=== PATIENT | female | born 1990 | race Caucasian/White ===

== ENCOUNTER 2018-08-23 21:55 | Emergency (ER) | payer MEDICAID ==
[~2018-08-23] VITALS: Ht 157.5 cm; Wt 63.0 kg
[2018-08-23 22:04] VITALS: Ht 157.5 cm; Wt 63.0 kg
[2018-08-23 23:02] LABS: BASOPHIL % 0.5 % (0-2); PLATELET COUNT 312 x10^3mcL (130-400)
[2018-08-23 23:05] LABS: RED CELL DISTRIBUTION WIDTH 17.3 % (11.5-14.5)
[2018-08-23 23:18] LABS: CALCIUM 8.7 mg/dL (8.5-10.1); CARBON DIOXIDE 27.9 mmol/L (21-32); CHLORIDE SERUM 104 mmol/L (98-107); CREATININE SERUM 0.6 mg/dL (0.6-1.0); GFR1 > 60 mL/min; GLUCOSE SERUM 89 mg/dL (74-106); POTASSIUM SERUM 3.7 mmol/L (3.5-5.1); SODIUM SERUM 140 mmol/L (136-145)
[2018-08-23 23:31] LABS: ALBUMIN 3.8 g/dL (3.4-5.0); ALKALINE PHOSPHATASE 56 U/L (46-116); ALT/SGPT 24 U/L (14-59); AST/SGOT 14 U/L (15-37); BILIRUBIN TOTAL 0.24 mg/dL (0.20-1.00); T4(THYROXINE) 6.7 ug/dL (4.7-13.3); TOTAL PROTEIN, SERUM 7.5 g/dL (6.4-8.2)
[2018-08-24 00:28] VITALS: BP 115/78
== END 2018-08-24 00:33 | disposition home or self-care (01) ==
LOC: ED 21:55
PROVIDERS: Emergency Medicine
DX: E01.0 Iodine-deficiency related diffuse (endemic) goiter (principal)
CPT/HCPCS: 36415; J1885

== ENCOUNTER 2018-08-26 01:39 | Emergency (ER) | payer MEDICAID ==
[~2018-08-26] VITALS: Ht 157.5 cm; Wt 62.1 kg
[2018-08-26 01:44] VITALS: Ht 157.5 cm; Wt 62.1 kg
[2018-08-26 02:52] VITALS: BP 95/64
== END 2018-08-26 02:52 | disposition left against medical advice (07) ==
LOC: ED 01:39
DX: Z53.21 Procedure and treatment not carried out due to patient leaving prior to being seen by health care provider (principal)

== ENCOUNTER 2018-08-31 22:34 | Emergency (ER) | payer MEDICAID ==
[~2018-08-31] VITALS: Ht 157.5 cm; Wt 61.2 kg
[2018-08-31 22:52] VITALS: Ht 157.5 cm; Wt 61.2 kg
[2018-08-31 23:30] LABS: BASOPHIL % 0.2 % (0-2); PLATELET COUNT 385 x10^3mcL (130-400)
[2018-08-31 23:31] LABS: RED CELL DISTRIBUTION WIDTH 17.2 % (11.5-14.5)
[2018-08-31 23:42] LABS: ALBUMIN 4.2 g/dL (3.4-5.0); ALKALINE PHOSPHATASE 65 U/L (46-116); ALT/SGPT 14 U/L (14-59); AST/SGOT 13 U/L (15-37); BILIRUBIN TOTAL 0.4 mg/dL (0.20-1.00); CALCIUM 8.7 mg/dL (8.5-10.1); CARBON DIOXIDE 27.4 mmol/L (21-32); CHLORIDE SERUM 103 mmol/L (98-107); CREATININE SERUM 0.7 mg/dL (0.6-1.0); GFR1 > 60 mL/min; GLUCOSE SERUM 84 mg/dL (74-106); LIPASE 233 IU/L (73-393); POTASSIUM SERUM 3.7 mmol/L (3.5-5.1); SODIUM SERUM 140 mmol/L (136-145); TOTAL PROTEIN, SERUM 7.8 g/dL (6.4-8.2)
[2018-09-01 00:29] VITALS: BP 103/68
== END 2018-09-01 00:29 | disposition home or self-care (01) ==
LOC: ED 22:34
PROVIDERS: Emergency Medicine
DX: K22.4 Dyskinesia of esophagus (principal); J18.9 Pneumonia, unspecified organism; F41.9 Anxiety disorder, unspecified; Z88.0 Allergy status to penicillin; Z88.8 Allergy status to other drugs, medicaments and biological substances
CPT/HCPCS: 36415; Q0092

== ENCOUNTER 2018-09-27 23:51 | Emergency (ER) | payer MEDICAID ==
[~2018-09-27] VITALS: Ht 157.5 cm; Wt 66.2 kg
[2018-09-27 23:56] VITALS: Ht 157.5 cm; Wt 66.2 kg
[2018-09-28 00:37] VITALS: BP 126/77
== END 2018-09-28 00:37 | disposition home or self-care (01) ==
LOC: ED 23:51
DX: S93.401A Sprain of unspecified ligament of right ankle, initial encounter (principal); J45.909 Unspecified asthma, uncomplicated; Z88.0 Allergy status to penicillin; Z88.8 Allergy status to other drugs, medicaments and biological substances; X50.1XXA Overexertion from prolonged static or awkward postures, initial encounter; Y93.02 Activity, running; Y92.89 Other specified places as the place of occurrence of the external cause; Y99.8 Other external cause status

== ENCOUNTER 2018-10-11 09:20 | Emergency (ER) | payer MEDICAID ==
[~2018-10-11] VITALS: Ht 157.5 cm; Wt 65.3 kg
[2018-10-11 09:28] VITALS: Ht 157.5 cm; Wt 65.3 kg
[2018-10-11 13:09] VITALS: BP 106/70
== END 2018-10-11 13:09 | disposition home or self-care (01) ==
LOC: ED 09:20
DX: R10.13 Epigastric pain (principal); J45.909 Unspecified asthma, uncomplicated; F41.9 Anxiety disorder, unspecified; Z98.890 Other specified postprocedural states; Z88.0 Allergy status to penicillin; Z88.8 Allergy status to other drugs, medicaments and biological substances
CPT/HCPCS: J1885; Q0092

== ENCOUNTER 2018-11-11 19:45 | Emergency (ER) | payer MEDICAID ==
[~2018-11-11] VITALS: Ht 157.5 cm; Wt 64.6 kg
[2018-11-11 20:14] VITALS: Ht 157.5 cm; Wt 64.6 kg
[2018-11-11 20:46] LABS: BASOPHIL % 0.4 % (0-2); PLATELET COUNT 346 x10^3mcL (130-400)
[2018-11-11 20:51] LABS: RED CELL DISTRIBUTION WIDTH 16.7 % (11.5-14.5)
[2018-11-11 20:52] LABS: CALCIUM 9.4 mg/dL (8.5-10.1); CARBON DIOXIDE 29.2 mmol/L (21-32); CHLORIDE SERUM 105 mmol/L (98-107); CREATININE SERUM 0.8 mg/dL (0.6-1.0); GFR1 > 60 mL/min; GLUCOSE SERUM 89 mg/dL (74-106); POTASSIUM SERUM 3.6 mmol/L (3.5-5.1); SODIUM SERUM 143 mmol/L (136-145)
[2018-11-11 20:56] LABS: ALBUMIN 4.1 g/dL (3.4-5.0); ALKALINE PHOSPHATASE 61 U/L (46-116); ALT/SGPT 11 U/L (14-59); AST/SGOT 5 U/L (15-37); TOTAL PROTEIN, SERUM 7.8 g/dL (6.4-8.2)
[2018-11-12 02:39] VITALS: BP 92/56
== END 2018-11-12 02:39 | disposition home or self-care (01) ==
LOC: ED 19:45
DX: R10.13 Epigastric pain (principal); R10.10 Upper abdominal pain, unspecified; J45.909 Unspecified asthma, uncomplicated; F41.9 Anxiety disorder, unspecified; Z98.890 Other specified postprocedural states; Z88.0 Allergy status to penicillin; Z88.8 Allergy status to other drugs, medicaments and biological substances
CPT/HCPCS: 36415; J1885

== ENCOUNTER 2018-11-13 14:30 | Emergency (ER) | payer MEDICAID ==
[~2018-11-13] VITALS: Ht 157.5 cm; Wt 63.0 kg
[2018-11-13 14:56] VITALS: Ht 157.5 cm; Wt 63.0 kg
[2018-11-13 15:55] LABS: BASOPHIL % 0.3 % (0-2); PLATELET COUNT 335 x10^3mcL (130-400)
[2018-11-13 15:57] LABS: RED CELL DISTRIBUTION WIDTH 16.5 % (11.5-14.5)
[2018-11-13 16:01] LABS: CALCIUM 8.9 mg/dL (8.5-10.1); CARBON DIOXIDE 31.4 mmol/L (21-32); CHLORIDE SERUM 106 mmol/L (98-107); CREATININE SERUM 0.6 mg/dL (0.6-1.0); GFR1 > 60 mL/min; GLUCOSE SERUM 93 mg/dL (74-106); POTASSIUM SERUM 4.2 mmol/L (3.5-5.1); SODIUM SERUM 141 mmol/L (136-145)
[2018-11-13 16:07] LABS: ALKALINE PHOSPHATASE 58 U/L (46-116); ALT/SGPT 20 U/L (14-59); AMYLASE 80 U/L (25-115); AST/SGOT 10 U/L (15-37); BILIRUBIN TOTAL 0.5 mg/dL (0.20-1.00); LIPASE 172 IU/L (73-393); TOTAL PROTEIN, SERUM 7.3 g/dL (6.4-8.2)
[2018-11-13 18:02] VITALS: BP 106/56
== END 2018-11-13 18:02 | disposition home or self-care (01) ==
LOC: ED 14:30
PROVIDERS: Emergency Medicine
DX: R10.13 Epigastric pain (principal); Z98.51 Tubal ligation status; F41.9 Anxiety disorder, unspecified; Z88.0 Allergy status to penicillin; Z88.8 Allergy status to other drugs, medicaments and biological substances
CPT/HCPCS: 36415; J0780; J1885; Q0092

== ENCOUNTER 2018-12-17 12:43 | Emergency (ER) | payer MEDICAID ==
[~2018-12-17] VITALS: Ht 162.6 cm; Wt 64.0 kg
[2018-12-17 12:50] VITALS: Ht 162.6 cm; Wt 64.0 kg
[2018-12-17 16:30] VITALS: BP 102/61
== END 2018-12-17 16:30 | disposition home or self-care (01) ==
LOC: ED 12:43
DX: G43.909 Migraine, unspecified, not intractable, without status migrainosus (principal); H53.149 Visual discomfort, unspecified; J45.909 Unspecified asthma, uncomplicated; F41.9 Anxiety disorder, unspecified; Z88.0 Allergy status to penicillin; Z98.890 Other specified postprocedural states; Z98.51 Tubal ligation status; Z88.8 Allergy status to other drugs, medicaments and biological substances
CPT/HCPCS: J1885; J2765

== ENCOUNTER 2019-01-11 17:52 | Emergency (ER) | payer MEDICAID ==
[~2019-01-11] VITALS: Ht 157.5 cm; Wt 64.0 kg
[2019-01-11 17:58] VITALS: Ht 157.5 cm; Wt 64.0 kg
[2019-01-11 18:29] VITALS: BP 108/66
== END 2019-01-11 19:11 | disposition home or self-care (01) ==
LOC: ED 17:52
DX: F41.9 Anxiety disorder, unspecified (principal); J45.909 Unspecified asthma, uncomplicated; G43.911 Migraine, unspecified, intractable, with status migrainosus; Z98.51 Tubal ligation status; Z98.890 Other specified postprocedural states; Z88.0 Allergy status to penicillin; Z88.8 Allergy status to other drugs, medicaments and biological substances

== ENCOUNTER 2019-02-19 12:05 | Emergency (ER) | payer OTHER ==
[~2019-02-19] VITALS: Ht 157.5 cm; Wt 61.7 kg
[2019-02-19 12:17] VITALS: BP 101/58; Ht 157.5 cm; Wt 61.7 kg
== END 2019-02-19 13:13 | disposition home or self-care (01) ==
LOC: ED 12:05
DX: H66.91 Otitis media, unspecified, right ear (principal); J45.909 Unspecified asthma, uncomplicated; F41.9 Anxiety disorder, unspecified; G43.909 Migraine, unspecified, not intractable, without status migrainosus; Z98.51 Tubal ligation status; Z88.0 Allergy status to penicillin; Z88.8 Allergy status to other drugs, medicaments and biological substances

== ENCOUNTER 2019-04-20 19:07 | Emergency (ER) | payer OTHER ==
[~2019-04-20] VITALS: Ht 157.5 cm; Wt 61.7 kg
[2019-04-20 19:54] VITALS: Ht 157.5 cm; Wt 61.7 kg
[2019-04-20 22:49] VITALS: BP 100/71
== END 2019-04-20 22:49 | disposition home or self-care (01) ==
LOC: ED 19:07
DX: G43.909 Migraine, unspecified, not intractable, without status migrainosus (principal); J45.909 Unspecified asthma, uncomplicated; F41.9 Anxiety disorder, unspecified; Z98.890 Other specified postprocedural states; Z98.51 Tubal ligation status; Z88.0 Allergy status to penicillin; Z88.8 Allergy status to other drugs, medicaments and biological substances
CPT/HCPCS: J1885; J2765

== ENCOUNTER 2019-05-12 19:38 | Emergency (ER) | payer OTHER ==
[~2019-05-12] VITALS: Ht 157.5 cm; Wt 61.7 kg
[2019-05-12 19:48] VITALS: Ht 157.5 cm; Wt 61.7 kg
[2019-05-12 22:26] VITALS: BP 107/68
== END 2019-05-12 22:50 | disposition home or self-care (01) ==
LOC: ED 19:38
DX: S46.811A Strain of other muscles, fascia and tendons at shoulder and upper arm level, right arm, initial encounter (principal); M54.6 Pain in thoracic spine; M54.2 Cervicalgia; X50.0XXA Overexertion from strenuous movement or load, initial encounter; Y93.89 Activity, other specified; Y92.89 Other specified places as the place of occurrence of the external cause; Y99.8 Other external cause status
CPT/HCPCS: J1885

== ENCOUNTER 2019-05-16 14:49 | Emergency (ER) | payer OTHER ==
[~2019-05-16] VITALS: Ht 233.7 cm; Wt 63.2 kg
[2019-05-16 15:26] VITALS: BP 115/40; Ht 233.7 cm; Wt 63.2 kg
== END 2019-05-16 16:19 | disposition left against medical advice (07) ==
LOC: ED 14:49
DX: Z53.21 Procedure and treatment not carried out due to patient leaving prior to being seen by health care provider (principal)

== ENCOUNTER 2019-07-08 23:27 | Emergency (ER) | payer OTHER ==
[~2019-07-08] VITALS: Ht 157.5 cm; Wt 61.7 kg
[2019-07-08 23:33] VITALS: Ht 157.5 cm; Wt 61.7 kg
[2019-07-09 00:30] LABS: BASOPHIL % 0.4 % (0-2); PLATELET COUNT 275 x10^3mcL (130-400); RED CELL DISTRIBUTION WIDTH 17.7 % (11.5-14.5)
[2019-07-09 00:37] LABS: CALCIUM 8.3 mg/dL (8.5-10.1); CARBON DIOXIDE 28.3 mmol/L (21-32); CHLORIDE SERUM 106 mmol/L (98-107); CREATININE SERUM 0.6 mg/dL (0.6-1.0); GFR1 > 60 mL/min; GLUCOSE SERUM 88 mg/dL (74-106); POTASSIUM SERUM 3.3 mmol/L (3.5-5.1); SODIUM SERUM 141 mmol/L (136-145)
[2019-07-09 00:43] LABS: ALBUMIN 3.7 g/dL (3.4-5.0); ALKALINE PHOSPHATASE 53 U/L (46-116); ALT/SGPT 16 U/L (14-59); AST/SGOT 12 U/L (15-37); BILIRUBIN TOTAL 0.2 mg/dL (0.20-1.00); TOTAL PROTEIN, SERUM 7.2 g/dL (6.4-8.2)
[2019-07-09 01:26] VITALS: BP 98/69
== END 2019-07-09 01:26 | disposition home or self-care (01) ==
LOC: ED 23:27
PROVIDERS: Emergency Medicine
DX: R07.89 Other chest pain (principal); F41.9 Anxiety disorder, unspecified; G43.909 Migraine, unspecified, not intractable, without status migrainosus; Z98.890 Other specified postprocedural states; Z88.0 Allergy status to penicillin; Z88.8 Allergy status to other drugs, medicaments and biological substances
CPT/HCPCS: 36415; Q0092

== ENCOUNTER 2019-07-24 21:24 | Emergency (ER) | payer OTHER ==
[~2019-07-24] VITALS: Ht 157.5 cm; Wt 60.3 kg
[2019-07-24 21:33] VITALS: Ht 157.5 cm; Wt 60.3 kg
[2019-07-24 23:17] LABS: BASOPHIL % 0.3 % (0-2); PLATELET COUNT 302 x10^3mcL (130-400)
[2019-07-24 23:18] LABS: RED CELL DISTRIBUTION WIDTH 16.4 % (11.5-14.5)
[2019-07-24 23:31] LABS: CALCIUM 8.5 mg/dL (8.5-10.1); CARBON DIOXIDE 30.2 mmol/L (21-32); CHLORIDE SERUM 102 mmol/L (98-107); CREATININE SERUM 0.6 mg/dL (0.6-1.0); GFR1 > 60 mL/min; GLUCOSE SERUM 82 mg/dL (74-106); POTASSIUM SERUM 3.6 mmol/L (3.5-5.1); SODIUM SERUM 139 mmol/L (136-145)
[2019-07-24 23:35] LABS: ALBUMIN 3.9 g/dL (3.4-5.0); ALKALINE PHOSPHATASE 54 U/L (46-116); ALT/SGPT 18 U/L (14-59); AST/SGOT 12 U/L (15-37); BILIRUBIN TOTAL 0.3 mg/dL (0.20-1.00); MAGNESIUM 1.8 mg/dL (1.8-2.4); TOTAL PROTEIN, SERUM 7.6 g/dL (6.4-8.2)
[2019-07-25 02:16] VITALS: BP 102/66
== END 2019-07-25 02:16 | disposition home or self-care (01) ==
LOC: ED 21:24
PROVIDERS: Emergency Medicine
DX: R20.2 Paresthesia of skin (principal)
CPT/HCPCS: 36415; J1885

== ENCOUNTER 2019-12-11 10:29 | Emergency (ER) | payer OTHER ==
[~2019-12-11] VITALS: Ht 157.5 cm; Wt 61.7 kg
[2019-12-11 10:42] VITALS: BP 100/50; Ht 157.5 cm; Wt 61.7 kg
== END 2019-12-11 12:20 ==
LOC: ED 10:29
DX: S63.501A Unspecified sprain of right wrist, initial encounter (principal); J45.909 Unspecified asthma, uncomplicated; G43.909 Migraine, unspecified, not intractable, without status migrainosus; Z88.0 Allergy status to penicillin; Z88.8 Allergy status to other drugs, medicaments and biological substances; X58.XXXA Exposure to other specified factors, initial encounter; Y93.89 Activity, other specified; Y92.89 Other specified places as the place of occurrence of the external cause; Y99.8 Other external cause status
CPT/HCPCS: Q0092

== ENCOUNTER 2020-03-09 16:34 | Emergency (ER) | payer OTHER ==
[~2020-03-09] VITALS: Ht 157.5 cm; Wt 65.3 kg
[2020-03-09 16:40] VITALS: Ht 157.5 cm; Wt 65.3 kg
[2020-03-09 18:32] VITALS: BP 104/68
== END 2020-03-09 18:32 | disposition home or self-care (01) ==
LOC: ED 16:34
DX: F41.9 Anxiety disorder, unspecified (principal); J45.909 Unspecified asthma, uncomplicated; G43.909 Migraine, unspecified, not intractable, without status migrainosus; Z98.51 Tubal ligation status; Z88.0 Allergy status to penicillin; Z88.8 Allergy status to other drugs, medicaments and biological substances

== ENCOUNTER 2020-04-09 08:11 | Emergency (ER) | payer OTHER ==
[2020-04-09 09:08] LABS: BASOPHIL % 0.5 % (0-2); PLATELET COUNT 360 x10^3mcL (130-400)
[2020-04-09 09:09] LABS: RED CELL DISTRIBUTION WIDTH 15.6 % (11.5-14.5)
[2020-04-09 10:12] VITALS: BP 115/74
== END 2020-04-09 11:08 | disposition home or self-care (01) ==
LOC: ED 08:11
PROVIDERS: Emergency Medicine
DX: N93.8 Other specified abnormal uterine and vaginal bleeding (principal); J45.909 Unspecified asthma, uncomplicated; G43.909 Migraine, unspecified, not intractable, without status migrainosus; Z88.0 Allergy status to penicillin; Z88.8 Allergy status to other drugs, medicaments and biological substances; Z98.890 Other specified postprocedural states
CPT/HCPCS: Q0092